=== PATIENT | male | born 1995 | race Caucasian/White ===

== ENCOUNTER 2016-08-14 05:48 | Day surgery (SDC) | payer OTHER ==
[2016-08-09 11:32] VITALS: BMI 24.3
[2016-08-14 06:31] VITALS: TEMP 97.5
[2016-08-14] MEDS ORDERED: MIDAZOLAM HCL 2 MG/2 ML SINGLE DOSE VIAL ONE (07:02)
[2016-08-14] MEDS ORDERED: KETAMINE HCL 500 MG/10 ML VIAL ONE (07:04)
[2016-08-14] MEDS ORDERED: ACETAMINOPHEN 325 MG TABLET (FP) PO PRN (08:11)
[2016-08-14] MEDS ORDERED: ACETAMINOPHEN 325 MG TABLET (FP) ONE (08:11)
[2016-08-14] MEDS ORDERED: ONDANSETRON 4 MG/2 ML VIAL IVPUSH PRN (08:11)
[2016-08-14] MEDS ORDERED: LACTATED RINGERS SOLUTION 1,000 ML IV SCH (08:15)
[2016-08-14 08:17] VITALS: BP 104/55; PULSE 73
== END 2016-08-14 08:20 | disposition home or self-care (01) ==
LOC: FECT 05:48
PROVIDERS: ATTEND Psychiatry & Neurology Psychiatry
PROC: GZB4ZZZ Other Electroconvulsive Therapy (ICD-10-PCS; principal; 2016-08-14 08:15)
DX: F33.1 Major depressive disorder, recurrent, moderate (principal)
CPT/HCPCS: 90870; 94760

== ENCOUNTER 2016-08-16 05:49 | Day surgery (SDC) | payer OTHER ==
[2016-08-14 12:50] VITALS: BMI 24.3
[2016-08-16] MEDS ORDERED: ONDANSETRON 4 MG/2 ML VIAL IVPUSH PRN (06:27)
[2016-08-16] MEDS ORDERED: LACTATED RINGERS SOLUTION 1,000 ML IV SCH (06:30)
[2016-08-16] MEDS ORDERED: KETAMINE HCL 500 MG/10 ML VIAL ONE (07:28)
[2016-08-16] MEDS ORDERED: MIDAZOLAM HCL 2 MG/2 ML SINGLE DOSE VIAL ONE (07:30)
[2016-08-16 08:30] VITALS: TEMP 97.7
[2016-08-16 08:57] VITALS: BP 124/80; PULSE 66
== END 2016-08-16 09:06 | disposition home or self-care (01) ==
LOC: FECT 05:49
PROVIDERS: ATTEND Psychiatry & Neurology Psychiatry
PROC: GZB4ZZZ Other Electroconvulsive Therapy (ICD-10-PCS; principal; 2016-08-16 08:45)
DX: F33.1 Major depressive disorder, recurrent, moderate (principal)
CPT/HCPCS: 90870; 94760

== ENCOUNTER 2016-08-21 05:39 | Day surgery (SDC) | payer OTHER ==
[2016-08-15 16:38] VITALS: BMI 24.3
[2016-08-21] MEDS ORDERED: KETAMINE HCL 500 MG/10 ML VIAL ONE (06:59)
[2016-08-21] MEDS ORDERED: MIDAZOLAM HCL 2 MG/2 ML SINGLE DOSE VIAL ONE (07:01)
[2016-08-21] MEDS ORDERED: LACTATED RINGERS SOLUTION 1,000 ML IV SCH (08:00)
[2016-08-21 08:39] VITALS: TEMP 97.6
[2016-08-21 08:55] VITALS: BP 110/61; PULSE 86
== END 2016-08-21 08:45 | disposition home or self-care (01) ==
LOC: FECT 05:39
PROVIDERS: ATTEND Psychiatry & Neurology Psychiatry
PROC: GZB4ZZZ Other Electroconvulsive Therapy (ICD-10-PCS; principal; 2016-08-21 07:15)
DX: F33.1 Major depressive disorder, recurrent, moderate (principal)
CPT/HCPCS: 90870; 94760

== ENCOUNTER 2016-08-23 05:46 | Day surgery (SDC) | payer OTHER ==
[2016-08-16 11:45] VITALS: BMI 24.3
[2016-08-23] MEDS ORDERED: MIDAZOLAM HCL 2 MG/2 ML SINGLE DOSE VIAL ONE (07:15)
[2016-08-23 08:08] VITALS: TEMP 98.2
[2016-08-23 11:10] VITALS: BP 112/66; PULSE 68
== END 2016-08-23 08:45 | disposition home or self-care (01) ==
LOC: FECT 05:46
PROVIDERS: ATTEND Psychiatry & Neurology Psychiatry
PROC: GZB4ZZZ Other Electroconvulsive Therapy (ICD-10-PCS; principal; 2016-08-23 08:00)
DX: F33.1 Major depressive disorder, recurrent, moderate (principal)
CPT/HCPCS: 90870; 94760

== ENCOUNTER 2016-08-26 05:39 | Day surgery (SDC) | payer OTHER ==
[2016-08-19 07:47] VITALS: BMI 24.3
[2016-08-26 06:33] VITALS: TEMP 97.7
[2016-08-26] MEDS ORDERED: KETAMINE HCL 500 MG/10 ML VIAL ONE (07:06)
[2016-08-26] MEDS ORDERED: ACETAMINOPHEN 325 MG TABLET (FP) PO PRN (07:07)
[2016-08-26] MEDS ORDERED: PROPOFOL 20 ML ONE (07:19)
[2016-08-26] MEDS ORDERED: SUCCINYLCHOLINE CHLORIDE 200 MG/10 ML VIAL ONE (07:19)
[2016-08-26 08:39] VITALS: BP 133/86; PULSE 110
== END 2016-08-26 08:25 | disposition home or self-care (01) ==
LOC: FECT 05:39
PROVIDERS: ATTEND Psychiatry & Neurology Psychiatry
PROC: GZB4ZZZ Other Electroconvulsive Therapy (ICD-10-PCS; principal; 2016-08-26 07:45)
DX: F33.1 Major depressive disorder, recurrent, moderate (principal)
CPT/HCPCS: 90870; 94760

== ENCOUNTER 2016-08-28 05:10 | Day surgery (SDC) | payer OTHER ==
[2016-08-22 08:36] VITALS: BMI 24.3
[2016-08-28] MEDS ORDERED: KETAMINE HCL 500 MG/10 ML VIAL ONE (07:34)
[2016-08-28] MEDS ORDERED: MIDAZOLAM HCL 2 MG/2 ML SINGLE DOSE VIAL ONE (07:35)
[2016-08-28] MEDS ORDERED: LACTATED RINGERS SOLUTION 1,000 ML IV SCH (08:45)
[2016-08-28 08:47] VITALS: TEMP 98
[2016-08-28 08:48] VITALS: BP 117/77; PULSE 82
== END 2016-08-28 08:55 | disposition home or self-care (01) ==
LOC: FECT 05:10
PROVIDERS: ATTEND Psychiatry & Neurology Psychiatry
PROC: GZB4ZZZ Other Electroconvulsive Therapy (ICD-10-PCS; principal; 2016-08-28 07:45)
DX: F33.1 Major depressive disorder, recurrent, moderate (principal)
CPT/HCPCS: 90870; 94760

== ENCOUNTER 2016-08-30 05:37 | Day surgery (SDC) | payer OTHER ==
[2016-08-26 17:47] VITALS: BMI 24.3
[2016-08-30] MEDS ORDERED: MIDAZOLAM HCL 2 MG/2 ML SINGLE DOSE VIAL ONE (06:53)
[2016-08-30] MEDS ORDERED: KETAMINE HCL 500 MG/10 ML VIAL ONE (06:54)
[2016-08-30 07:57] VITALS: TEMP 97.9
[2016-08-30 09:40] VITALS: BP 116/72
[2016-08-30 09:43] VITALS: PULSE 98
[2016-08-30] MEDS ORDERED: LACTATED RINGERS SOLUTION 1,000 ML IV SCH (12:15)
[2016-08-30] MEDS ORDERED: ONDANSETRON 4 MG/2 ML VIAL IVPUSH PRN (13:06)
== END 2016-08-30 08:30 | disposition home or self-care (01) ==
LOC: FECT 05:37
PROVIDERS: ATTEND Psychiatry & Neurology Psychiatry
PROC: GZB4ZZZ Other Electroconvulsive Therapy (ICD-10-PCS; principal; 2016-08-30 07:15)
DX: F33.1 Major depressive disorder, recurrent, moderate (principal)
CPT/HCPCS: 90870; 94760

== ENCOUNTER 2016-09-02 05:34 | Day surgery (SDC) | payer OTHER ==
[2016-08-27 11:10] VITALS: BMI 24.3
[2016-09-02] MEDS ORDERED: KETAMINE HCL 500 MG/10 ML VIAL ONE (07:13)
[2016-09-02] MEDS ORDERED: MIDAZOLAM HCL 2 MG/2 ML SINGLE DOSE VIAL ONE (07:13)
[2016-09-02] MEDS ORDERED: LACTATED RINGERS SOLUTION 1,000 ML IV SCH (08:15)
[2016-09-02 08:18] VITALS: TEMP 98
[2016-09-02 08:37] VITALS: BP 118/76; PULSE 88
== END 2016-09-02 08:35 | disposition home or self-care (01) ==
LOC: FECT 05:34
PROVIDERS: ATTEND Psychiatry & Neurology Psychiatry
PROC: GZB4ZZZ Other Electroconvulsive Therapy (ICD-10-PCS; principal; 2016-09-02 07:15)
DX: F33.1 Major depressive disorder, recurrent, moderate (principal)
CPT/HCPCS: 90870; 94760

== ENCOUNTER 2016-09-04 05:35 | Day surgery (SDC) | payer OTHER ==
[2016-09-02 08:31] VITALS: BMI 24.3
[2016-09-04 06:32] VITALS: TEMP 98
[2016-09-04] MEDS ORDERED: MIDAZOLAM HCL 2 MG/2 ML SINGLE DOSE VIAL ONE (07:12)
[2016-09-04] MEDS ORDERED: KETAMINE HCL 500 MG/10 ML VIAL ONE (07:13)
[2016-09-04] MEDS ORDERED: ONDANSETRON 4 MG/2 ML VIAL IVPUSH PRN (07:55)
[2016-09-04] MEDS ORDERED: LACTATED RINGERS SOLUTION 1,000 ML IV SCH (08:00)
[2016-09-04 08:34] VITALS: BP 112/70; PULSE 76
== END 2016-09-04 08:30 | disposition home or self-care (01) ==
LOC: FECT 05:35
PROVIDERS: ATTEND Psychiatry & Neurology Psychiatry
PROC: GZB4ZZZ Other Electroconvulsive Therapy (ICD-10-PCS; principal; 2016-09-04 07:00)
DX: F33.1 Major depressive disorder, recurrent, moderate (principal)
CPT/HCPCS: 90870; 94760

== ENCOUNTER 2016-09-06 05:38 | Day surgery (SDC) | payer OTHER ==
[2016-09-03 10:48] VITALS: BMI 24.3
[2016-09-06 06:25] VITALS: TEMP 97
[2016-09-06] MEDS ORDERED: MIDAZOLAM HCL 2 MG/2 ML SINGLE DOSE VIAL ONE (07:01)
[2016-09-06] MEDS ORDERED: KETAMINE HCL 500 MG/10 ML VIAL ONE (07:02)
[2016-09-06 08:26] VITALS: BP 130/82; PULSE 83
== END 2016-09-06 08:15 | disposition home or self-care (01) ==
LOC: FECT 05:38
PROVIDERS: ATTEND Psychiatry & Neurology Psychiatry
PROC: GZB4ZZZ Other Electroconvulsive Therapy (ICD-10-PCS; principal; 2016-09-06 07:00)
DX: F33.1 Major depressive disorder, recurrent, moderate (principal)
CPT/HCPCS: 90870; 94760

== ENCOUNTER 2016-09-13 05:38 | Day surgery (SDC) | payer OTHER ==
[2016-09-09 15:55] VITALS: BMI 24.3
--- NOTE | 2016-09-13 06:56 | HP ---
Admitting History and Physical - Admission History of Present Illness: patient is a 21 y/o male with a past medical history of depression, polysubstance abuse and asthma. patient presents for ect his last ECT was . Patient reports feeling well, he report the recent of his girlfriend in 07/26. He does report an iimprovement in depressive symptoms since starting ECT. He denies any recent hospitalizations or illness. History Source: Patient Limitations to Obtaining History: No Limitations - Past Medical History Psych: Yes: Depression Additional Past Medical History: polysubstance abuse - Smoking History Smoking history: Current every day smoker Have you smoked in the past 12 months: Yes Aproximately how many cigarettes per day: 10 - Alcohol/Substance Use Hx Alcohol Use: No (SEE ABOVE) Home Medications - Allergies Allergies/Adverse Reactions: Allergies Allergy/AdvReac Type Severity Reaction Status Date / Time almond oil Allergy Severe Swelling Verified 09/06/16 06:15 No Known Drug Allergies Allergy Verified 09/06/16 06:15 - Home Medications Home Medications: Ambulatory Orders Buprenorphine/Naloxone [Suboxone 8Mg/2Mg Sl Film -] 2 each SL DAILY 08/06/16 Doxepin HCl [Sinequan -] 100 mg PO HS 08/06/16 Vortioxetine Hydrobromide [Brintellix] 20 mg PO DAILY 08/06/16 Clonazepam [Klonopin] 4 mg PO DAILY 08/08/16 Alprazolam [Xanax] 2 mg PO HS 08/30/16 Methylphenidate HCl [Ritalin LA] 10 mg PO ASDIR PRN 08/30/16 Minocycline HCl [Minocin] 100 mg PO DAILY 09/13/16 Family Disease History - Family Disease History Family History: Unremarkable Review of Systems - Review of Systems Constitutional: reports: No Symptoms Eyes: reports: No Symptoms HENT: reports: No Symptoms Neck: reports: No Symptoms Cardiovascular: reports: No Symptoms Respiratory: reports: No Symptoms Gastrointestinal: reports: No Symptoms Genitourinary: reports: No Symptoms Breasts: reports: No Symptoms Reported Musculoskeletal: reports: No Symptoms Integumentary: reports: No Symptoms Neurological: reports: No Symptoms Endocrine: reports: No Symptoms Hematology/Lymphatic: reports: No Symptoms Psychiatric: reports: No Symptoms Physical Examination Constitutional: Yes: Well Nourished, No Distress, Calm Eyes: Yes: WNL, Conjunctiva Clear, EOM Intact HENT: Yes: WNL, Atraumatic, Normocephalic Neck: Yes: WNL, Supple, Trachea Midline Cardiovascular: Yes: WNL, Regular Rate and Rhythm, S1, S2 Respiratory: Yes: WNL, Regular, CTA Bilaterally Gastrointestinal: Yes: WNL, Normal Bowel Sounds, Soft ...Rectal Exam: Yes: Deferred Renal/: Yes: WNL Musculoskeletal: Yes: WNL Extremities: Yes: WNL Edema: No Peripheral Pulses WNL: Yes Peripheral Pulses: Left Radial: 4+, Right Radial: 4+, Left Doralis Pedis: 3+, Right Dorsalis Pedis: 3+, Left Femoral: 3+, Right Femoral: 3+ Integumentary: Yes: Tattoos Neurological: Yes: WNL, Alert, Oriented ...Motor Strength: WNL Psychiatric: Yes: WNL, Alert, Oriented Labs: reviewed 07/26 Imaging - Results EKG: Image Reviewed, Other (nsr normal axis) Problem List - Problems (1) Depression Assessment/Plan: low risk for ECT Code(s): F32.9 - MAJOR DEPRESSIVE DISORDER, SINGLE EPISODE, UNSPECIFIED (2) Asthma Assessment/Plan: no acute excerbation at this time Code(s): J45.909 - UNSPECIFIED ASTHMA, UNCOMPLICATED (3) Polysubstance (excluding opioids) dependence with physiol dependence Assessment/Plan: continue suboxone Code(s): F19.20 - OTHER PSYCHOACTIVE SUBSTANCE DEPENDENCE, UNCOMPLICATED Assessment/Plan pt is a 21 y/o male with a past medical history of depression, asthma and polysubstance abuse. pt has received anesthesia in the past and denies any adverse reaction. labs and ekg reviewed no acute asthma excerbation at this time pt is low risk for ect informed consent, risks/benefits to be obtained by Dr Martinez
[2016-09-13] MEDS ORDERED: KETAMINE HCL 500 MG/10 ML VIAL ONE (08:32)
[2016-09-13] MEDS ORDERED: ONDANSETRON 4 MG/2 ML VIAL IVPUSH PRN (09:13)
[2016-09-13] MEDS ORDERED: LACTATED RINGERS SOLUTION 1,000 ML IV SCH (09:15)
[2016-09-13 09:34] VITALS: TEMP 98.5
[2016-09-13 10:26] VITALS: BP 126/72; PULSE 78
== END 2016-09-13 10:15 | disposition home or self-care (01) ==
LOC: FECT 05:38
PROVIDERS: ATTEND Psychiatry & Neurology Psychiatry
PROC: GZB4ZZZ Other Electroconvulsive Therapy (ICD-10-PCS; principal; 2016-09-13 07:45)
DX: F33.1 Major depressive disorder, recurrent, moderate (principal)
CPT/HCPCS: 90870; 94760